=== PATIENT | male | born 1990 | race Two or more races ===

== ENCOUNTER 2020-07-04 20:39 | Emergency (ER) | payer BC, OTHER ==
[2020-07-04] MEDS ORDERED: DEXAMETHASONE SOD PHOSPHATE 10 MG/1 ML VIAL IM ONE (20:45)
[2020-07-04] MEDS ORDERED: ALBUTEROL SO4 2.5/IPRATROPIUM 0.5 INH SOL 3 ML VIAL.NEB. NEB SCH (20:45)
[2020-07-04 21:08] VITALS: TEMP 97.9; BMI 31.1
[2020-07-04 22:15] VITALS: BP 114/70; PULSE 83
== END 2020-07-04 22:15 | disposition home or self-care (01) ==
LOC: JER 20:39
PROC: 3E0F7GC Introduction of Other Therapeutic Substance into Respiratory Tract, Via Natural or Artificial Opening (ICD-10-PCS; principal; 2020-07-04)
PROC: 3E023GC Introduction of Other Therapeutic Substance into Muscle, Percutaneous Approach (ICD-10-PCS; 2020-07-04)
DX: J45.901 Unspecified asthma with (acute) exacerbation (principal)
CPT/HCPCS: 71046-TC-FY; 99285-25; J1100

== ENCOUNTER 2024-10-06 12:26 | Emergency (ER) | payer BC ==
[2024-10-06 12:51] VITALS: BP 108/74; PULSE 71; RESP 16; TEMP 98.5; BMI 28.7
[2024-10-06] MEDS ORDERED: KETOROLAC TROMETHAMINE 15 MG/ML VIAL ONE (13:14)
[2024-10-06] MEDS: KETOROLAC TROMETHAMINE 15 MG/ML VIAL IVPUSH ONE (13:23)
[2024-10-06] MEDS: SODIUM CHLORIDE 1,000 ML IV STA (13:23)
[2024-10-06 13:37] LABS: ABSOLUTE IMMATURE GRANULOCYTES 0.01 x10^3/uL (0.0-0.031); BASOPHILS # 0.02 x10^3/uL (0.01-0.08); EOSINOPHIL % 0.9 % (0.8-7.0); EOSINOPHILS # 0.03 x10^3/uL (0.04-0.54); HEMOGLOBIN 16.3 g/dL (13.7-17.5); MCHC 33.3 g/dl (32.3-36.5); MEAN CELL VOLUME 85.4 fl (79.0-92.2); MEAN PLT VOLUME 11.2 fl (9.4-12.4); MONOCYTE # 0.34 x10^3/uL (0.30-0.82); PLATELET COUNT 243 x10^3/uL (163-337); RDW 14.5 % (12.0-15.6)
[2024-10-06 13:56] LABS: POTASSIUM 4.4 mmol/L (3.5-5.1)
[2024-10-06 13:58] LABS: CALCIUM 9.2 mg/dL (8.5-10.1)
[2024-10-06 13:59] LABS: ALBUMIN 3.4 g/dl (3.4-5.0); BLOOD UREA NITROGEN 10.2 mg/dL (7-18)
[2024-10-06 14:04] LABS: BILIRUBIN,TOTAL 0.6 mg/dL (0.2-1); TOT PROT 8.3 g/dl (6.4-8.2)
[2024-10-06 14:25] LABS: PH,URINE 5.5 (5.0-8.0); URINE APPEARANCE CLEAR; URINE BILIRUBIN NEGATIVE (NEGATIVE); URINE COLOR YELLOW; URINE GLUCOSE (UA) NEGATIVE (NEGATIVE); URINE KETONE TRACE (NEGATIVE); URINE LEUK ESTERASE NEGATIVE (NEGATIVE); URINE NITRITE NEGATIVE (NEGATIVE); URINE PROTEIN NEGATIVE (NEGATIVE); URINE UROBILINOGEN 0.2 mg/dL (0.2-1.0)
[2024-10-06 14:28] LABS: CREATININE 0.9 mg/dL (0.55-1.3)
[2024-10-06 14:53] LABS: HCV DIAGNOSTIC IN-HOUSE W/RFLX NON-REACTIVE (NONREACTIVE); HIV INTERPRETATION NEGATIVE (NEGATIVE)
== END 2024-10-06 15:40 | disposition home or self-care (01) ==
LOC: JER 12:26
PROC: 3E0333Z Introduction of Anti-inflammatory into Peripheral Vein, Percutaneous Approach (ICD-10-PCS; principal; 2024-10-06)
PROC: 3E0337Z Introduction of Electrolytic and Water Balance Substance into Peripheral Vein, Percutaneous Approach (ICD-10-PCS; 2024-10-06)
DX: R10.9 Unspecified abdominal pain (principal); R39.198 Other difficulties with micturition
CPT/HCPCS: 36415; 76705-TC; 80053; 81003; 83690; 85025; 86803; 87086; 87389; 99285-25